=== PATIENT | female | born 1945 | race Caucasian/White ===

== ENCOUNTER → 2017-12-02 | Outpatient (CLI) | payer OTHER ==
[~2017-12-02] MED LIST: IOPAMIDOL (ISOVUE 370) 100 ML BTL IV ONE
== END ==
LOC: FIMAGING 15:36
PROVIDERS: ATTEND Surgery
DX: I65.23 Occlusion and stenosis of bilateral carotid arteries (principal); M50.320 Other cervical disc degeneration, mid-cervical region, unspecified level; M48.02 Spinal stenosis, cervical region; Z98.890 Other specified postprocedural states
CPT/HCPCS: 70498; Q9967